=== PATIENT | male | born 1965 ===

== ENCOUNTER → 2021-07-23 08:00 | Outpatient (CLI) | payer OTHER ==
[~2021-07-23 08:00] MED LIST: WELLBUTRIN SR150 MG PO
== END | disposition home or self-care (01) ==
LOC: LAB 08:00 → ADM 11:30 → CIR.AMB 07-27 07:00 → EDSTATUS 07-27 11:30
PROVIDERS: ATTEND Surgery
DX: R22.1 Localized swelling, mass and lump, neck (principal); Z03.818 Encounter for observation for suspected exposure to other biological agents ruled out; Z11.59 Encounter for screening for other viral diseases